=== PATIENT | female | born 1965 | race African-American/Black ===

== ENCOUNTER 2020-08-14 12:53 | Emergency (ER) | payer OTHER ==
[~2020-08-14] VITALS: Ht 162.6 cm; Wt 90.7 kg
[2020-08-14] MEDS ORDERED: FLEXERIL PO (13:25)
[2020-08-14] MEDS ORDERED: TORADOL 10 MG T10 MG PO (13:26)
[2020-08-14] MEDS ORDERED: FUROSEMIDE 20 M20 M1 PO (13:27)
[2020-08-14] MEDS ORDERED: PHENERGAN 25 MG25 MG PO (13:27)
[2020-08-14] MEDS ORDERED: PROTONIX 20 MG20 M1 PO (13:28)
[2020-08-14 13:49] LABS: ABSOLUTE NEUTROPHILS 3.5 thou/uL (1.4-8.2); BASOPHILS 0.7 % (0.0-2.0); EOSINOPHILS 0.5 % (0.0-3.0); HEMATOCRIT 41.3 % (37.0-47.0); HEMOGLOBIN 13.4 gm/dL (12.0-15.0); LYMPHOCYTES 24.9 % (24.0-44.0); MCH 30.4 pg (26.0-34.0); MCHC 32.4 g/dL (28.0-37.0); MCV 93.8 fL (80.0-100.0); MONOCYTES 7.3 % (1.0-8.0); PLATELET COUNT 192 thou/uL (150-400); POLYS 66.6 % (36.0-66.0); RBC 4.41 mil/uL (4.20-5.00); RDW 14.5 % (10.5-14.5); WBC 5.3 thou/uL (4.0-11.0)
[2020-08-14 13:59] LABS: CALCIUM 8.2 mg/dL (8.5-10.1); CREATININE 0.9 mg/dL (0.6-1.0); POTASSIUM 3.6 mmol/L (3.5-5.1)
[2020-08-14 14:07] LABS: ALBUMIN 3.6 g/dL (3.4-5.0); TOTAL BILIRUBIN 0.3 mg/dL (0.2-1.0); TOTAL PROTEIN 7.4 g/dL (6.4-8.2)
[2020-08-14] MEDS ORDERED: PROMETHAZINE-C473 ML PO (15:07)
[2020-08-14] MEDS ORDERED: PROAIR HFA8.5 GM INH (15:07)
[2020-08-14 15:48] VITALS: BP 178/95
== END 2020-08-14 15:50 | disposition home or self-care (01) ==
LOC: ER 12:53
PROVIDERS: Physician Assistant
DX: U07.1 COVID-19 (principal); R05 Cough; Z79.899 Other long term (current) drug therapy

== ENCOUNTER 2020-09-21 06:06 | Inpatient (IN) | payer OTHER ==
[~2020-09-21] VITALS: Ht 162.6 cm; Wt 95.0 kg
[~2020-09-21 06:06] MED LIST: FLEXERIL PO; FUROSEMIDE 20 M20 M1 PO; PHENERGAN 25 MG25 MG PO; PROAIR HFA8.5 GM INH; PROMETHAZINE-C473 ML PO; PROTONIX 20 MG20 M1 PO; TORADOL 10 MG T10 MG PO
[2020-09-21 06:07] VITALS: BP 167/101
[2020-09-21 06:34] LABS: ABSOLUTE NEUTROPHILS 5.8 thou/uL (1.4-8.2); BASOPHILS 0.7 % (0.0-2.0); HEMATOCRIT 41.6 % (37.0-47.0); HEMOGLOBIN 13.9 gm/dL (12.0-15.0); LYMPHOCYTES 23.6 % (24.0-44.0); MCH 30.8 pg (26.0-34.0); MCHC 33.3 g/dL (28.0-37.0); MCV 92.4 fL (80.0-100.0); MONOCYTES 6.7 % (1.0-8.0); PLATELET COUNT 270 thou/uL (150-400); RDW 14.7 % (10.5-14.5)
[2020-09-21 07:23] LABS: CALCIUM 8.4 mg/dL (8.5-10.1)
[2020-09-21 07:29] LABS: TOTAL BILIRUBIN 0.5 mg/dL (0.2-1.0)
[2020-09-21 09:00] LABS: BE(vivo) 0.1 mmol/L (-2 to +3); HCO3 27.4 mmol/L (22.0-26.0); PO2 VENOUS 67.1 mmHg (35.0-45.0)
[2020-09-21 09:04] LABS: BE(vivo) -0.2 mmol/L (-2 to +3); HCO3 25.3 mmol/L (22.0-26.0); PCO2 44.1 mmHg (35.0-45.0); PO2 64.9 mmHg (80.0-100.0); pH 7.376 (7.360-7.450); sO2 92.2 % (92.0-98.0)
--- NOTE | 2020-09-21 10:20 | NUR ---
PT INFORMED NURSE SHE TOOK ONE OF HER OWN PROMETHAZINE PILLS
--- NOTE | 2020-09-21 12:18 | EKG ---
[facility] [place] [address] ELECTROCARDIOGRAM REPORT Name: ELTON PAREDES Room #: 170-8 ADM IN M.R.#: [id number] Admission: 09/21/20 Attend Phys: Ruben Vogel MD Discharge: Date of : 69 Report #: [id number] THIS REPORT FOR: cc: FAM - Family physician unknown FAM - Family physician unknown Mario Britt MD [facility] ~ THIS REPORT FOR: //name// [facility] ED Test Date: 2020-09-21 Test Time: 06:15:12 Pat Name: ELTON PAREDES Department: Room: 170 Gender: F Book Cutter: DAVID SPARKS : 1965 Requested By: Matt Mane Order Number: [id number] MD: Mario Britt Measurements Intervals [place] Rate: 120 P: 55 ID: [id number] QRS: 22 QRSD: 73 T: 21 QT: 313 QTc: 443 Interpretive Statements Sinus tachycardia Abnormal R-wave progression, early transition No previous ECG available for comparison Electronically Signed On 09-21-2020 12:18:02 SPECIAL LIBRARIAN by Mario Britt [email or web address] <ELECTRONICALLY SIGNED> By: Mario Britt MD, FACC 09/21/20 1218 4 4 Mario Britt MD, [facility] /EPI
[2020-09-21 19:23] LABS: FOLIC ACID 15.6 ng/mL (8.6-58.9); TSH 3.974 uIU/mL (0.358-3.740)
--- NOTE | 2020-09-21 22:33 | NUR ---
SPOKE WITH JERSON HAYWOOD, REPORTED PTS FINDINGS. MAY DC ISOLATION FOR DEBBIE
[2020-09-21 23:14] VITALS: BP 133/83
[2020-09-22] VITALS: BP 147/63
[2020-09-22] MEDS ORDERED: AZITHROMYCIN500 MG PO (01:12)
[2020-09-22] MEDS ORDERED: TESSALON PERLE100 M1 PO (01:13)
[2020-09-22] MEDS ORDERED: FLONASE 0.05%50 MCG NASAL (01:16)
[2020-09-22] MEDS ORDERED: TRIAMCINOLONE A15 G1 TOP (01:19)
--- NOTE | 2020-09-22 02:18 | NUR ---
pt admitted from ed for sobb, pna and positive influenza. pt is pleasant, alert and orientedx4, sr on the monitor, denies pain, improved soa, on 2l nc o2 sat stable at 97%, other vss, pt requesting to have a bath, denies having other concerns at this time, admission asessment and education as charted, no needs at this time, will continue to monitor
[2020-09-22 03:23] VITALS: BP 147/63
[2020-09-22 03:42] VITALS: BP 118/68
[2020-09-22 04:32] LABS: CALCIUM 9.4 mg/dL (8.5-10.1); CREATININE 1.1 mg/dL (0.6-1.0); MAGNESIUM 1.9 mg/dL (1.8-2.4); POTASSIUM 4.3 mmol/L (3.5-5.1)
[2020-09-22 04:37] LABS: ABSOLUTE NEUTROPHILS 15.6 thou/uL (1.4-8.2); BASOPHILS 0.2 % (0.0-2.0); HEMATOCRIT 41.1 % (37.0-47.0); HEMOGLOBIN 13.2 gm/dL (12.0-15.0); LYMPHOCYTES 6.3 % (24.0-44.0); MCV 93.5 fL (80.0-100.0); MONOCYTES 1.5 % (1.0-8.0); PLATELET COUNT 285 thou/uL (150-400); RDW 14.8 % (10.5-14.5); WBC 16.9 thou/uL (4.0-11.0)
--- NOTE | 2020-09-22 13:04 | 2DMMODE ---
[facility] [place] [address] 2 D/M-MODE ECHOCARDIOGRAM Name: ELTON PAREDES Room #: 202-P ADM IN M.R.#: [id number] Admission: 09/21/20 Attend Phys: Ruben Vogel MD Discharge: Date of : 69 Report #: [id number] THIS REPORT FOR: cc: Physician not on staff Physician not on staff Mario Britt MD [facility] ~ APPROVED REPORT Study performed: 09/22/2020 11:28:03 EXAM: Comprehensive 2D, Doppler, and color-flow Echocardiogram Patient Location: Bedside Room #: 202 Status: routine BSA: 1.99 HR: 110 bpm BP: 118/68 mmHg Rhythm: Tachycardia Other Information Study Quality: Good Indications Dyspnea Cardiomyopathy Chest Pain 2D Dimensions RVDd: 28.66 mm IVSd: 8.14 (7-11mm) LVOT Diam: 19.81 (18-24mm) LVDd: 36.35 mm PWd: 8.99 (7-11mm) Ascending Ao: 26.73 (22-36mm) LVDs: 20.33 (25-40mm) Aortic Root: 28.16 mm IVC: 14.00 mm Volumes Left Atrial Volume (Systole) Single Plane 4CH: 28.08 mL Single Plane 2CH: 22.78 mL LA ESV Index: 14.00 mL/m2 Aortic Valve AoV Peak Sreekanth.: 1.63 m/s AO Peak Gr.: 10.68 mmHg LVOT Max P.17 mmHg LVOT Max V: 1.14 m/s [facility] [address] [place] [address] 2 D/M-MODE ECHOCARDIOGRAM Name: ELTON PAREDES Room #: 202-P [facility] IN .R.#: [id number] Admission: 09/21/20 Attend Phys: Ruben Vogel, Discharge: Date of : 69 Report #: [id number] PAT Vmax: 2.14 cm2 Mitral Valve E/A Ratio: 0.7 MV Decel. Time: 261.42 ms MV E Max Sreekanth.: 0.70 m/s MV A Sreekanth.: 0.99 m/s MV PHT: 75.81 ms IVRT: 117.65 ms Pulmonary Valve PV Peak Sreekanth.: 1.25 m/s PV Peak Gr.: 6.26 mmHg Pulmonary Vein P Vein S: 0.47 m/s P Vein A: 0.40 m/s P Vein D: 0.24 m/s P Vein A Dur.: 79.6 msec P Vein S/D Ratio: 1.96 Left Ventricle The left ventricle is normal size. There is normal LV segmental wall motion. There is normal left ventricular wall thickness. Left ventricular systolic function is normal. The left ventricular ejection fraction is within the normal range. LVEF is >55%. Grade I - abnormal relaxation pattern. Right Ventricle The right ventricle is normal size. The right ventricular systolic function is normal. Atria The left atrium size is normal. The right atrium size is normal. Aortic Valve The aortic valve is normal in structure. No aortic regurgitation is present. There is no aortic valvular stenosis. Mitral Valve The mitral valve is normal in structure. There is no mitral valve regurgitation noted. No evidence of mitral valve stenosis. Tricuspid Valve The tricuspid valve is normal in structure. There is no tricuspid valve regurgitation noted. Pulmonic Valve [facility] [address] [place] [address] 2 D/M-MODE ECHOCARDIOGRAM Name: ELTON PAREDES Room #: 202-P [facility] IN .R.#: [id number] Admission: 09/21/20 Attend Phys: Ruben Vogel, Discharge: Date of : 69 Report #: [id number] The pulmonary valve is normal in structure. There is no pulmonic valvular regurgitation. Great Vessels The aortic root is normal in size. IVC is normal in size and collapses >50% with inspiration. Pericardium There is no pericardial effusion. <Conclusion> Normal left ventricle size and wall thickness Preserved ejection fraction EF of 60% Negative for segmental wall motion abnormality Normal right heart size and function No significant valvular dysfunction detected No tricuspid valve insufficiency No pericardial effusion <ELECTRONICALLY SIGNED> By: Mario Britt MD, FACC 09/22/20 1304 03 03 Mario Britt MD, FAC /INF
[2020-09-22 19:22] VITALS: BP 144/68
--- NOTE | 2020-09-22 19:27 | NUR ---
ASSUMED CARE OF PT AT SHIFT CHANGE. ASSESSMENTS CHARTED. MEDS GIVEN PER JAN. PT A&OX4, NO C/O PAIN. PT IN ISOLATION FOR FLU. PT USES [facility] D/T URGENCY. WILL CONTINUE TO MONITOR AND FOLLOW POC.
[2020-09-22 23:31] VITALS: BP 144/68
[2020-09-23 03:45] VITALS: BP 136/91
--- NOTE | 2020-09-23 04:38 | NUR ---
assumed pt care at the change of shift, pt is awake, alert and orientedx4, sr on the monitor, assessments as charted, meds given as per mar, vss, denies having concerns, will continue to monitor
[2020-09-23] MEDS ORDERED: OSELTAMIVIR PHO75 MG PO (09:43)
[2020-09-23] MEDS ORDERED: PREDNISONE 10 M10 MG PO (09:44)
[2020-09-23] MEDS ORDERED: XOPENEX HFA15 GM INH (09:46)
[2020-09-23 09:48] VITALS: BP 138/98
[2020-09-23 09:56] VITALS: BP 138/98
--- NOTE | 2020-09-23 11:45 | NUR ---
ASSUMMED PT CARE AT APPROXIMATELY 0700. PT A&O X4. ASSESSMENT CHARTED. PT AMBULATES STEADY AND IS UP AD KHADIJAH. VITAL SIGNS STABLE. PT BECAME VERY AGITATED AND ANGRY IN THE MORNING. PT STARTED SLAMMING HER DOOR SHUT, YELLING, AND RIPPING OUT HER IV. SECURITY CALLED. DR. MOLINA NOTIFIED. SPOKE C PT. PT CALMED DOWN. PT DISCHARGING HOME C SELF CARE. DISCHARGE INSTRUCTIONS GIVEN. PT STATED UNDERSTANDING AND DENIED HAVING FURTHER QUESTIONS. TELE DC. IV DC. PT STATED SHE WANTED TO AMBULATE OFF UNIT. PT AMBULATED OFF UNIT. PT COMFORTABLE. PT DENIED HAVING FURTHER CONCERNS.
== END 2020-09-23 11:25 | disposition home or self-care (01) | DRG 871 ==
LOC: ER 06:06 → EROBS 11:21 → 2N 09-22 00:07
PROVIDERS: Emergency Medicine; Nurse Practitioner; ADMIT Internal Medicine; ATTEND Internal Medicine
DX: A41.89 Other specified sepsis (principal); J96.01 Acute respiratory failure with hypoxia; J96.02 Acute respiratory failure with hypercapnia; J18.9 Pneumonia, unspecified organism; I42.9 Cardiomyopathy, unspecified; J45.901 Unspecified asthma with (acute) exacerbation; E66.9 Obesity, unspecified; J11.1 Influenza due to unidentified influenza virus with other respiratory manifestations; Z90.49 Acquired absence of other specified parts of digestive tract; Z86.718 Personal history of other venous thrombosis and embolism; Z68.35 Body mass index [BMI] 35.0-35.9, adult; Z79.899 Other long term (current) drug therapy
CPT/HCPCS: 10081